=== PATIENT | female | born 1955 ===

== ENCOUNTER 2022-08-11 18:15 | Emergency (ER) | payer MEDICARE, OTHER ==
[2022-08-11] MEDS ORDERED: Acetaminophen/HYDROcodone 325-5 MG Tab PO ONE (20:10)
== END 2022-08-11 18:25 | disposition home or self-care (01) ==
LOC: MW.ED 18:15
DX: S52.501A Unspecified fracture of the lower end of right radius, initial encounter for closed fracture (principal)
CPT/HCPCS: 29125; 73110; 99283; A9270